=== PATIENT | female | born 1990 ===

== ENCOUNTER 2024-06-05 15:02 | Outpatient (CLI) | payer BC, SELFPAY ==
--- NOTE | 2024-06-05 15:44 | MM_ITS ---
WS: [id number] BILATERAL 3D TOMOSYNTHESIS DIGITAL SCREENING MAMMOGRAPHY WITH CAD CLINICAL INFORMATION: SCREEN HISTORY: Screening mammogram. No current complaints. Family history of breast cancer. COMPARISON: Baseline TECHNIQUE: Bilateral CC and MLO views. FINDINGS: Scattered fibroglandular densities bilaterally. No suspicious focal mass, asymmetry, calcifications, or architectural distortion. No evidence of malignancy. MM/[place] [id number] IMPRESSION: BI-RADS: 1-Negative FOLLOW UP: 1 Year Follow-up Recommend return to annual screening mammography.
== END 2024-06-05 15:03 | disposition home or self-care (01) ==
LOC: RAD 15:05
PROVIDERS: PCP Family Medicine; Visit Provider Family Medicine
DX: Z12.31 Encounter for screening mammogram for malignant neoplasm of breast (principal); R92.323 Mammographic fibroglandular density, bilateral breasts
CPT/HCPCS: 77063; 77067

== ENCOUNTER 2025-01-09 13:52 | Outpatient (CLI) | payer BC, SELFPAY ==
--- NOTE | 2025-01-09 13:56 | XR_ITS ---
WS: [id number] Left ankle, 3 views, 01/09/2025 Clinical Data: ANKLE PAIN, LEFT Comparison: None. Findings: No fractures or dislocations are seen. The ankle mortise is normal. The talus and calcaneus are unremarkable. There is soft tissue swelling over the medial and lateral malleolus. There is a small calcification inferior to the tip of the lateral malleolus which may be an incidental finding.. XR/XR ankle LT min 3V* [id number] Impression: 1. Negative for left ankle fracture. 2. Soft tissue swelling over medial and lateral malleolus.
== END 2025-01-09 13:53 | disposition home or self-care (01) ==
LOC: RAD 13:53
PROVIDERS: PCP Family Medicine; Visit Provider Nurse Practitioner Family
DX: M25.572 Pain in left ankle and joints of left foot (principal); R22.42 Localized swelling, mass and lump, left lower limb; M61.472 Other calcification of muscle, left ankle and foot
CPT/HCPCS: 73610